=== PATIENT | male | born 1970 | race Caucasian/White ===

== ENCOUNTER 2020-09-07 10:47 | Emergency (ER) | payer OTHER ==
[~2020-09-07] VITALS: Ht 170.2 cm; Wt 95.3 kg
--- NOTE | 2020-09-07 10:50 | NUR ---
DR Mariee at the bedside for MSE.
[2020-09-07 11:20] LABS: POTASSIUM 3.5 mmol/L (3.5-5.1)
[2020-09-07 11:28] LABS: BASOPHILS % (AUTO) 0.7 % (0.0-2.0); EOSINOPHILS % (AUTO) 0.1 % (0.0-7.0); HEMATOCRIT 38.1 % (36.7-47.1); HEMOGLOBIN 13.2 g/dL (12.5-16.3); LYMPHOCYTES # (AUTO) 1.2 K/uL (20.0-40.0); LYMPHOCYTES % (AUTO) 35.4 % (20.5-51.5); MEAN CORPUSCULAR HEMOGLOBIN 33.1 uug (23.8-33.4); MEAN CORPUSCULAR HGB CONC 35 g/dL (32.5-36.3); MEAN CORPUSCULAR VOLUME 95.2 fL (73.0-96.2); MONOCYTES # (AUTO) 0.3 K/uL (2.0-10.0); MONOCYTES % (AUTO) 7.9 % (0.0-11.0); NEUTROPHILS % (AUTO) 55.9 % (38.5-71.5); WHITE BLOOD COUNT (AUTO) 3.5 K/uL (3.6-10.2)
[2020-09-07 11:29] LABS: PLATELET COUNT (AUTO) 49 K/uL (152-348)
--- NOTE | 2020-09-07 11:40 | NUR ---
Pt is awake a/o x3 and verbally responsive. Able to tolorate PO intake.
[2020-09-07] MEDS ORDERED: levETIRAcetam 250 MG TABLET PO ONE (11:45)
[2020-09-07] MEDS ORDERED: levETIRAcetam 250 MG TABLET ONE (11:50)
--- NOTE | 2020-09-07 12:05 | NUR ---
IV removed. Catheter intact and site benign. Pressure and 4x4 gauze applied to site. No bleeding noted.
[2020-09-07 12:06] VITALS: BP 152/89
--- NOTE | 2020-09-07 12:09 | NUR ---
Patient discharged to home in stable condition. Written and verbal after care instructions given. Patient verbalizes understanding of instructions. Stressed follow up or return to ER for worsening s/s. Plus follow up with his PCP at [facility]. Pt left ER w/ steady gait.
[2020-09-07 15:12] LABS: EOSINOPHILS % (MANUAL) 1 % (0-8); LYMPHOCYTES % (MANUAL) 37 % (20-40); MONOCYTES % (MANUAL) 8 % (2-10); NEUTROPHILS % (MANUAL) 54 % (42-75)
== END 2020-09-07 12:11 | disposition home or self-care (01) ==
LOC: ER 10:47
DX: G40.909 Epilepsy, unspecified, not intractable, without status epilepticus (principal); D69.6 Thrombocytopenia, unspecified
CPT/HCPCS: 36415; 70030-TC; 70450; 85025; A4663